=== PATIENT | male | born 1990 | race Caucasian/White ===

== ENCOUNTER 2021-10-26 19:08 | Emergency (ER) | payer MEDICAID, OTHER ==
[~2021-10-26] VITALS: Ht 167.6 cm; Wt 84.0 kg
[2021-10-26] MEDS ORDERED: MORPHINE SULFATE 4 MG/ML CPJ (NOT FOR IM USE) IV STA (19:18)
[2021-10-26] MEDS ORDERED: ONDANSETRON HCL 4MG/2ML INJ IV STA (19:18)
[2021-10-26] MEDS ORDERED: LIDOCAINE HCL/EPINEPHRINE 1%-EPI 1:100,000 20 ML VIAL INFIL ONE (19:30)
[2021-10-26] MEDS ORDERED: TETANUS, DIPHTHERIA, PERTUSSIS VAC/PF 0.5ML (>10YR OLD) IM ONE (19:30)
[2021-10-26] MEDS ORDERED: BACITRACIN ZINC OINT UDPKT TOP ONE (19:30)
[2021-10-26] MEDS ORDERED: SODIUM CHLORIDE 0.9% 1,000 ML IV ONE (19:30)
[2021-10-26 19:45] LABS: CHLORIDE 107 mEq/L (98-107)
[2021-10-26 19:46] LABS: BASOPHILS % 0.6 % (0.0-2.0); EOSINOPHILS % 2.3 % (0.0-5.0); HEMATOCRIT. 42.9 % (42.0-52.0); HEMOGLOBIN. 14.3 g/dL (14.0-18.0); LYMPHOCYTES % 40.9 % (20.0-50.0); MEAN CORPUSCULAR HEMOGLOBIN 31.1 pg (28.0-32.0); MEAN CORPUSCULAR VOLUME 93.4 fL (80.0-94.0); MEAN PLATELET VOLUME 9.1 fl (7.4-10.4); MONOCYTES % 10.2 % (2.0-8.0); PLATELET 272 x1000/uL (130-400); RED BLOOD CELL COUNT 4.59 mill/uL (4.7-6.1); RED CELL DISTRIBUTION WIDTH 14.3 % (11.6-14.6)
[2021-10-26] MEDS ORDERED: POTASSIUM CHLORIDE 20MEQ TABLET SR PO ONE (20:15)
[2021-10-26] MEDS ORDERED: IOHEXOL-350 100 ML BOTTLE ONE (22:11)
[2021-10-26] MEDS ORDERED: CEFAZOLIN 1000MG PREMIX 50 ML IV ONE (23:30)
[2021-10-26] MEDS ORDERED: GENTAMICIN 80MG PREMIX 100 ML IV ONE (23:30)
[2021-10-26] MEDS ORDERED: GENTAMICIN 80MG PREMIX 100 ML IV STA (23:35)
[2021-10-26] MEDS ORDERED: CEFAZOLIN 1000MG PREMIX 50 ML IV STA (23:35)
[2021-10-27] MEDS ORDERED: CEPH500C2 MT (13:14)
[2021-10-27 13:47] VITALS: BP 165/75
== END 2021-10-27 13:48 | disposition home or self-care (01) ==
LOC: ER 19:08 → CANBEDREQ 10-27 12:52 → ER 10-27 13:48
DX: S82.291A Other fracture of shaft of right tibia, initial encounter for closed fracture (principal); W34.09XA Accidental discharge from other specified firearms, initial encounter; Y93.89 Activity, other specified; Y92.89 Other specified places as the place of occurrence of the external cause; Y99.8 Other external cause status; Z20.822 Contact with and (suspected) exposure to COVID-19
CPT/HCPCS: 36415; 73560; 73706; 80053; 85025; 87426; 90471; 90715; 96361; 96365; 96368; 99285; C9803; J0690; J1580; J2405; J3490; J7030; Q9967; J2270